=== PATIENT | male | born 1960 | race Caucasian/White ===

== ENCOUNTER → 2016-10-26 | Outpatient (CLI) | payer MEDICARE, MEDICAID ==
[~2016-10-26] MED LIST: FLEXERIL PO; LISINOPRIL40 MG PO; MULTIVITAMINS1 EAC1 PO; NEURONTIN300 MG PO; PERCOCET 5-3251 EACH PO; SPORTS CREAM85 GM TP; TYLENOL325 MG PO; VALIUM5 MG PO
== END | disposition home or self-care (01) ==
LOC: RAD.S 10:00
DX: M54.2 Cervicalgia (principal); M48.02 Spinal stenosis, cervical region; Z98.1 Arthrodesis status